=== PATIENT | female | born 2000 | race African-American/Black ===

== ENCOUNTER 2024-09-09 12:59 | Emergency (ER) | payer OTHER ==
[2024-09-09] MEDS ORDERED: Lidocaine 1% w/Epinephrine 1:200K 30 ML VIAL ONE (14:33)
== END 2024-09-09 15:46 | disposition home or self-care (01) ==
LOC: CSHERS 12:59
DX: N75.0 Cyst of Bartholin's gland (principal)
CPT/HCPCS: 56420; J0665